=== PATIENT | female | born 2000 | race Caucasian/White ===

== ENCOUNTER 2021-09-06 23:24 | Inpatient (IN) ==
[~2021-09-06 23:24] MED LIST: Betamethasone Acet/SodPhos 30 MG/5 ML VIAL IM SCH; Ringers Solution, Lactated 1,000 ML ONE; Ringers Solution, Lactated 500 ML IVC ONE
[2021-09-06] MEDS ORDERED: Penicillin G Potassium 5,000,000 UNIT in 0.9 % Sodium Chloride Mini Bag 100 ML IVPB ONE (23:25)
[2021-09-06 23:28] LABS: Bacteria,Urine Few per hpf (None-Few); Bilirubin,Urine Negative (Negative); Blood,Urine Negative (Negative); Clarity,Urine Turbid (Clear); Color,Urine Light-Yellow (Yellow); Glucose,Urine (UA) Normal (Normal); Ketones,Urine Negative (Negative); Leukocyte Esterase,Urine Large (Negative); Mucus,Urine Few per lpf (None-Few); Nitrite,Urine Negative (Negative); Protein,Urine Negative (Neg-Trace); Specific Gravity,Urine 1.011 (1.010-1.025); Squamous Epithelial Cell,Urine Few per hpf (None-Few); Urobilinogen,Urine Normal (Normal); WBC,Urine 0-3 per hpf (0-3)
[2021-09-06] MEDS ORDERED: Magnesium Sulf 20 gm/SW 500mL 4 GM/100 ML BAG IV ONE (23:34)
[2021-09-06 23:52] LABS: Protein/Creatinine Ratio,Urine 0.24 mg/mg (0.00-0.20)
[2021-09-06 23:53] LABS: Basophils % 0.2 %; Eosinophils # 0.1 K/mcL (0.0-0.6); Eosinophils % 0.5 %; Hematocrit 36.1 % (35.3-44.9); Hemoglobin 12.3 g/dL (11.5-15.4); Immature Granulocytes % 0.7 % (0-4); Lymphocytes # 3.8 K/mcL (0.6-4.6); Lymphocytes % 25.2 %; Mean Corpuscular HGB Conc 34.1 g/dL (31.6-35.5); Mean Platelet Volume 10.8 fL (9.4-12.4); Monocytes # 1.1 K/mcL (0.0-1.3); Monocytes % 7.1 %; Neutrophils # 9.9 K/mcL (1.6-8.9); Platelet Count 173 K/mcL (140-400); Red Blood Count 3.84 M/mcL (3.82-4.97); Red Cell Distribution Width 13.5 % (11.5-14.5); Segmented Neutrophils % 66.3 %; White Blood Count 14.9 K/mcL (4.3-11.1)
[2021-09-07 00:02] LABS: Alanine Aminotransferase 8 Units/L (7-52); Aspartate Amino Transferase 15 Units/L (13-39); BUN/Creatinine Ratio 11 (6-26); Blood Urea Nitrogen 6 mg/dL (6-20); Lactate Dehydrogenase 179 Units/L (140-271); Uric Acid 3.5 mg/dL (2.3-7.6); eGFR For African Americans > 60 (> 60); eGFR For Non-African Americans > 60 (> 60)
[2021-09-07] MEDS ORDERED: Calcium Gluconate 1,000 MG/10 ML VIAL IVP PRN (00:15)
[2021-09-07] MEDS: Magnesium Sulf 20 gm/SW 500mL 20 GM/500 ML IV.SOLN IVC SCH ×2 (00:24→10:32)
[2021-09-07] MEDS: Penicillin G Potassium 2,500,000 UNIT/105 ML MLS IVPB SCH ×2 (03:55→08:02)
[2021-09-07] MEDS: Ringers Solution, Lactated 1,000 ML ONE ×2 (03:55→14:02)
[2021-09-07] MEDS ORDERED: Ringers Solution, Lactated 1,000 ML ONE (13:59)
[2021-09-07] MEDS ORDERED: Betamethasone Acet/SodPhos 30 MG/5 ML VIAL IM SCH (20:00)
[2021-09-07] MEDS ORDERED: Acetaminophen 325 MG TABLET PO ONE (22:02)
== END 2021-09-07 23:30 | disposition home or self-care (01) | DRG 832 ==
LOC: 1NENULAB
PROVIDERS: ADMIT Obstetrics & Gynecology; ATTEND Obstetrics & Gynecology

== ENCOUNTER → 2021-09-10 21:00 | Observation (INO) | END | disposition home or self-care (01) | LOC: 1NENULAB | PROVIDERS: ADMIT Registered Nurse; ATTEND Registered Nurse ==

== ENCOUNTER → 2021-09-11 01:57 | Observation (INO) | END | disposition home or self-care (01) | LOC: 1NENULAB | PROVIDERS: ADMIT Registered Nurse; ATTEND Registered Nurse ==

== ENCOUNTER 2021-09-15 11:12 | Observation (INO) ==
[2021-09-15] MEDS ORDERED: *HR* Nalbuphine 10 MG/ML AMPUL IV STA (14:00)
== END 2021-09-15 17:43 | disposition home or self-care (01) ==
LOC: 1NENULAB
PROVIDERS: ADMIT Obstetrics & Gynecology; ATTEND Obstetrics & Gynecology

== ENCOUNTER 2021-09-16 10:18 | Inpatient (IN) ==
[2021-09-16] MEDS ORDERED: Ondansetron 4 MG/2 ML VIAL IVP PRN (10:26)
[2021-09-16] MEDS ORDERED: Lidocaine 1% 20 ML MDV INFILT PRN (10:26)
[2021-09-16] MEDS ORDERED: Famotidine 20 MG/2 ML VIAL IVP PRN (10:26)
[2021-09-16] MEDS ORDERED: Azithromycin 500 MG in 0.9 % Sodium Chloride 250 ML IVPB PRN (10:26)
[2021-09-16] MEDS ORDERED: Metoclopramide 10 MG/2 ML VIAL IVP PRN (10:26)
[2021-09-16] MEDS ORDERED: *HR* Nalbuphine 10 MG/ML AMPUL IV PRN (10:26)
[2021-09-16] MEDS ORDERED: Penicillin G Potassium 5,000,000 UNIT in 0.9 % Sodium Chloride Mini Bag 100 ML IVPB ONE (10:29)
[2021-09-16] MEDS ORDERED: Ringers Solution, Lactated 1,000 ML IVC SCH (10:30)
[2021-09-16] MEDS ORDERED: Ringers Solution, Lactated 1,000 ML ONE (10:51)
[2021-09-16] MEDS ORDERED: EPHEDrine 50 MG/ML VIAL IVP PRN (10:58)
[2021-09-16] MEDS ORDERED: Epidural Premix (fent/bupiv) 110 ML EP SCH (11:00)
[2021-09-16 11:04] LABS: Basophils % 0.2 %; Eosinophils % 0.1 %; Hematocrit 34.6 % (35.3-44.9); Hemoglobin 11.9 g/dL (11.5-15.4); Immature Granulocytes % 0.7 % (0-4); Lymphocytes # 3.1 K/mcL (0.6-4.6); Lymphocytes % 21.8 %; Mean Corpuscular HGB Conc 34.4 g/dL (31.6-35.5); Mean Corpuscular Hemoglobin 32.1 pg (28.0-33.3); Mean Corpuscular Volume 93.3 fL (83.0-100.0); Monocytes % 6.7 %; Neutrophils # 10.2 K/mcL (1.6-8.9); Platelet Count 188 K/mcL (140-400); Red Blood Count 3.71 M/mcL (3.82-4.97); Red Cell Distribution Width 13.2 % (11.5-14.5); Segmented Neutrophils % 70.5 %; White Blood Count 14.4 K/mcL (4.3-11.1)
[2021-09-16 11:56] LABS: Amphetamine Screen,Urine Negative ng/mL (Cutoff=1000); Barbiturate Screen,Urine Negative ng/mL (Cutoff=200); Benzodiazepines Screen,Urine Negative ng/mL (Cutoff=200); Cannabinoid Screen,Urine Negative ng/mL (Cutoff = 50); Cocaine Screen,Urine Negative ng/mL (Cutoff= 300); Opiate Screen,Urine Negative ng/mL (Cutoff=300); Phencyclidine Screen,Urine Negative ng/mL (Cutoff=25)
[2021-09-16] MEDS: Penicillin G Potassium 2,500,000 UNIT/105 ML MLS IVPB SCH ×2 (15:20→19:47)
[2021-09-16] MEDS ORDERED: Oxytocin 30 UNIT/503 ML BAG IVC ONE (20:38)
[2021-09-16] MEDS ORDERED: miSOPROStoL 100 MCG TABLET PO PRN (23:50)
[2021-09-16] MEDS ORDERED: Ondansetron ODT 4 MG TAB.RAPDIS SL PRN (23:50)
[2021-09-16] MEDS ORDERED: Lanolin 7 G OINT...G. TP PRN (23:50)
[2021-09-16] MEDS ORDERED: Benzocaine/Menthol 56 GM AEROSOL SPRAY TP PRN (23:50)
[2021-09-16] MEDS ORDERED: *HR* OxyCODONE Immed Rel 5 MG TABLET PO PRN (23:50)
[2021-09-16] MEDS ORDERED: Rho Immune Globulin 1,500 UNIT SYRINGE IM PRN (23:50)
[2021-09-16] MEDS ORDERED: Oxytocin 30 UNIT/503 ML BAG IVC SCH (23:50)
[2021-09-16] MEDS ORDERED: OXYTOCIN/RINGERS LACTATE 10 UNIT/166.6 ML BAG IVC ONE (23:50)
[2021-09-17] MEDS: Acetaminophen 325 MG TABLET PO SCH ×4 (00:36→21:23)
[2021-09-17] MEDS: Ibuprofen 600 MG TABLET PO SCH ×4 (00:36→21:23)
[2021-09-17] MEDS: ceFAZolin 2,000 MG in 0.9 % Sodium Chloride 100 ML IVPB SCH ×3 (00:40→15:17)
[2021-09-17 06:02] LABS: Basophils % 0.2 %; Eosinophils % 0.1 %; Hematocrit 27.5 % (35.3-44.9); Immature Granulocytes % 0.6 % (0-4); Lymphocytes # 2.9 K/mcL (0.6-4.6); Lymphocytes % 17.2 %; Mean Corpuscular HGB Conc 33.5 g/dL (31.6-35.5); Mean Corpuscular Hemoglobin 31.4 pg (28.0-33.3); Mean Corpuscular Volume 93.9 fL (83.0-100.0); Monocytes # 1.6 K/mcL (0.0-1.3); Monocytes % 9.3 %; Neutrophils # 12.3 K/mcL (1.6-8.9); Platelet Count 140 K/mcL (140-400); Red Blood Count 2.93 M/mcL (3.82-4.97); Red Cell Distribution Width 13.2 % (11.5-14.5); Segmented Neutrophils % 72.6 %; White Blood Count 16.9 K/mcL (4.3-11.1)
[2021-09-17 06:03] LABS: Hemoglobin 9.2 g/dL (11.5-15.4)
[2021-09-17] MEDS: Prenatal Vit/FA 1 EACH TABLET PO SCH (08:05)
[2021-09-18 07:11] VITALS: BP 100/62; PULSE 75; TEMP 97.6; O2SAT 97
[2021-09-18] MEDS: Acetaminophen 325 MG TABLET PO SCH (09:36)
[2021-09-18] MEDS: Ibuprofen 600 MG TABLET PO SCH (09:36)
[2021-09-18] MEDS: Prenatal Vit/FA 1 EACH TABLET PO SCH (09:36)
[2021-09-18] MEDS ORDERED: Etonogestrel 68 MG IMPLANT IL ONE (10:23)
[2021-09-18] MEDS ORDERED: Lidocaine/EPI 1:100k 1% 50 ML VIAL INFILT ONE ×2 (11:00→13:15)
[2021-09-18] MEDS ORDERED: Lidocaine/EPI 1:100k 1% 30 ML VIAL INFILT ONE (13:15)
== END 2021-09-18 15:53 | disposition home or self-care (01) | DRG 806 ==
LOC: 1NENULAB 10:18 → 1NENUOBS 23:41
PROVIDERS: ADMIT Obstetrics & Gynecology; ATTEND Obstetrics & Gynecology